=== PATIENT | male | born 1975 | race Caucasian/White ===

== ENCOUNTER 2016-11-07 11:03 | Observation (INO) ==
[2016-11-07] MEDS ORDERED: 0.9 % Sodium Chloride 1,000 ML IVC ONE (11:10)
[2016-11-07] MEDS ORDERED: *HR* LORazepam 2 MG/ML VIAL IVP ONE (11:10)
--- NOTE | 2016-11-07 11:12 | Emergency Department Note ---
Overdose - Differential Diagnosis Likely: intentional overdose - Medical Records Medical records reviewed: Yes I reviewed the patient's medical records. - Lab Data Lab results reviewed: Yes I reviewed the patient's lab results. Result diagrams: 11/07/16 11:25 11/07/16 11:25 Lab Results 11/07/16 11/07/16 11/07/16 Range/Units 11:25 11:25 11:25 WBC 9.5 (4.3-11.1) K/mcL RBC 5.03 (4.19-5.50) M/mcL Hgb 15.2 (12.9-16.9) g/dL Hct 43.0 (37.5-50.1) % MCV 85.5 (83.0-100.0) fL MCH 30.2 (28.0-33.3) pg MCHC 35.3 (31.6-35.5) g/dL RDW 13.2 (11.5-14.5) % Plt Count 285 (140-400) K/mcL MPV 9.3 L (9.4-12.4) fL Immature Gran % 0.3 (0-4) % Seg Neutrophils % 63.5 % Lymphocytes % 26.7 % Monocytes % 8.8 % Eosinophils % 0.2 % Basophils % 0.5 % Neutrophils # 6.0 (1.6-8.9) K/mcL Lymphocytes # 2.5 (0.6-4.6) K/mcL Monocytes # 0.8 (0.0-1.3) K/mcL Eosinophils # 0.0 (0.0-0.6) K/mcL Basophils # 0.1 (0.0-0.2) K/mcL Sodium 142 (136-145) mEq/L Potassium 4.1 (3.5-4.5) mEq/L Chloride 107 (98-109) mEq/L Carbon Dioxide 21 (19-29) mEq/L BUN 16 (8-26) mg/dL Creatinine 0.78 (0.72-1.25) mg/dL Est GFR ( Amer) > 60 (> 60) Est GFR (Non-Af Amer) > 60 (> 60) BUN/Creatinine Ratio 21 (6-26) Glucose 97 (70-99) mg/dL Calculated Osmolality 295 (280-300) Calcium 10.3 (8.6-10.8) mg/dL Total Bilirubin 1.2 (0.2-1.2) mg/dL Direct Bilirubin 0.5 (0.0-0.5) mg/dL Indirect Bilirubin 0.7 (0.0-1.2) mg/dL AST 156 H (5-34) Units/L ALT 258 H (0-55) Units/L Alkaline Phosphatase 94 (38-126) Units/L Creatine Kinase 2493 H (30-200) Units/L Troponin I (0-0.03) ng/mL Serum Total Protein 7.5 (6.0-8.3) g/dL Albumin 4.5 (3.5-5.0) g/dL Globulin 3.0 (2.4-3.5) g/dL Albumin/Globulin Ratio 1.5 (1.1-2.2) Salicylates < 5.0 L (15-30) mg/dL Acetaminophen < 1.0 L (10-30) mcg/mL Ethyl Alcohol < 10 (0-10) mg/dL 11/07/16 Range/Units 11:25 WBC (4.3-11.1) K/mcL RBC (4.19-5.50) M/mcL Hgb (12.9-16.9) g/dL Hct (37.5-50.1) % MCV (83.0-100.0) fL MCH (28.0-33.3) pg MCHC (31.6-35.5) g/dL RDW (11.5-14.5) % Plt Count (140-400) K/mcL MPV (9.4-12.4) fL Immature Gran % (0-4) % Seg Neutrophils % % Lymphocytes % % Monocytes % % Eosinophils % % Basophils % % Neutrophils # (1.6-8.9) K/mcL Lymphocytes # (0.6-4.6) K/mcL Monocytes # (0.0-1.3) K/mcL Eosinophils # (0.0-0.6) K/mcL Basophils # (0.0-0.2) K/mcL Sodium (136-145) mEq/L Potassium (3.5-4.5) mEq/L Chloride (98-109) mEq/L Carbon Dioxide (19-29) mEq/L BUN (8-26) mg/dL Creatinine (0.72-1.25) mg/dL Est GFR ( Amer) (> 60) Est GFR (Non-Af Amer) (> 60) BUN/Creatinine Ratio (6-26) Glucose (70-99) mg/dL Calculated Osmolality (280-300) Calcium (8.6-10.8) mg/dL Total Bilirubin (0.2-1.2) mg/dL Direct Bilirubin (0.0-0.5) mg/dL Indirect Bilirubin (0.0-1.2) mg/dL AST (5-34) Units/L ALT (0-55) Units/L Alkaline Phosphatase (38-126) Units/L Creatine Kinase (30-200) Units/L Troponin I 0.01 (0-0.03) ng/mL Serum Total Protein (6.0-8.3) g/dL Albumin (3.5-5.0) g/dL Globulin (2.4-3.5) g/dL Albumin/Globulin Ratio (1.1-2.2) Salicylates (15-30) mg/dL Acetaminophen (10-30) mcg/mL Ethyl Alcohol (0-10) mg/dL - Radiology Data Radiology results reviewed: Yes I reviewed the patient's radiology results. Single view chest x-ray is performed. This does not demonstrate evidence for infiltrate, effusion, pneumothorax, pneumomediastinum, foreign body or heart failure. The cardiac silhouette is normal. I do not see abnormality to the osseous structures of the chest. This is on my interpretation. - EKG Data EKG attestation: Yes I reviewed and interpreted this EKG. EKG shows normal: sinus rhythm, axis, intervals, QRS complexes, ST-T waves Rate: tachycardia (109) Interpretation: no acute changes Overdose HPI - General Stated Complaint: trouble breathing Time Seen by Provider: 11/07/16 11:10 Source: patient Mode of arrival: private vehicle Limitations: altered mental status Nursing Notes Reviewed: Yes Vital Signs Reviewed: Yes - History of Present Illness HPI Narrative: The patient articulates that he has a long history of drug abuse. Relates recently he has been doing "ice and methamphetamine". His last IV use of these substances was about 3 weeks ago "with a new needle". He states he has continued using drugs by nasal, smoking or oral route daily. He understood that the police were upstairs last night and he ingested 6 grams of "ice". He figured that they had turned his gas of and his water so that he could not flush or get rid of these in any other way other than to ingest the drug. He states that he thought he had subsequently only fallen asleep for about 20 minutes and was surprised to find it was late the next morning when his neighbor came to check on him. He has been somewhat hyperdynamic, hyperventilatory and agitated and has been brought in for evaluation. He denies any attempt to harm himself or other. He denies any other prescription or [id number] drug use. He denies alcohol. He states that once he gets started taking drugs that he just cannot stop. He states that he knows that the methamphetamine would cause him to have "all kinds of hallucinations". Patient denies headache, nausea, vomiting, chest pain or feeling of palpitations. He denies he has been having abdominal pain. He denies any type of extremity, neck or back pain. He is able to explain that he feels that he is still under the effect of the drugs that he took last night. Pt Subjective Complaint: intentional overdose Onset (ago): hour(s) (13) Timing confirmed by: other (Neighbor) Intent: other (To avoid the police) How Overdose Was Discovered: other (Family came to visit today) Associated symptoms: paranoia, hallucinations, shortness of breath Treatments Prior to Arrival: none - Related Data Home Medications Medication Instructions Recorded Confirmed No Known Home Drugs 11/07/16 11/07/16 Allergies Allergy/AdvReac Type Severity Reaction Status Date / Time Penicillins [PCN] Allergy Severe Difficulty Verified 11/07/16 11:11 Breathing Tomato Allergy Severe Difficulty Verified 11/07/16 11:11 Breathing All systems ED: reviewed and negative except as stated. Past Medical History - Past Medical History Attestation: Yes The following information was validated with the patient. Source: patient, old records reviewed, nursing notes reviewed Medical history: Reports: CHF, diabetes, hepatitis, hyperlipidemia, hypertension , kidney stones, liver disease, renal disease, thyroid disease, syncope, other ( Patient says his liver, kidney and heart problems were due to previous drug abuse.) Surgical history: Reports: no surgical history Psychiatric history: Reports: anxiety, bipolar, depression, PTSD, previous psychiatric hospitalization - Social History Smoking Status: Current every day smoker Smokeless Tobacco Status: No Alcohol use: Reports: none Drug use: Reports: methamphetamine Physical Exam - General Limitations: altered mental status (Agitated) General appearance: alert, anxious - Head Head exam: atraumatic, normocephalic, normal inspection - Eye Eye exam: Present: normal appearance, PERRL, EOMI - ENT ENT exam: normal exam, normal oropharynx, mucous membranes moist - Neck Neck exam: Present: normal inspection, full ROM, trachea midline - Chest Chest inspection: Present: normal inspection, symmetric chest wall rise - Respiratory Respiratory exam: Present: normal lung sounds bilaterally, other (Elevated respiratory rate). Absent: wheezes, prolonged expiratory phase - Cardiovascular Cardiovascular exam: Present: regular rate, normal rhythm, tachycardia, normal heart sounds - Abdominal Exam Abdominal exam: Present: soft, Non-Tender, normal bowel sounds. Absent: tenderness, distention, guarding, rebound, rigidity - Extremities Exam Extremities exam: Present: normal inspection, full ROM, normal capillary refill. Absent: tenderness, pedal edema - Expanded Lower Extremity Exam Neurovascular/Tendon exam: Present: normal capillary refill. Absent: motor deficit, sensory deficit, tendon deficit Gait: not tested/not observed (Patient is brought in wheelchair. He is able to stand and transfer to the examining bed.) - Back Exam Back exam: Present: normal inspection, full ROM. Absent: tenderness - Neurological Exam Neurological exam: Present: alert. Absent: motor sensory deficit - Psychiatric Psychiatric exam: Present: agitated, anxious - Skin Skin exam: Present: warm, dry, intact, normal color. Absent: cyanosis, diaphoresis, pallor Course Course Narrative: 1253: Patient has not been in to urinate at this time. He has now somnolent on the Ativan and I believe he will need hydration overnight and a recheck of his renal function and CK tomorrow prior to discharge. For this reason I have had the hospitalist, Dr. Cruz paged. 1310: Dr. Cruz is agreeable to having this patient observed in the hospital. His only concern is if this would be an attempt at self-harm and the patient has very specifically denied this. He will be observed, hydrated and repeat blood work is written for tomorrow morning. I have contacted to [facility] bed management and we are working on bed placement. Vital Signs Temperature 99.1 F 11/07/16 11:03 Pulse Rate 123 11/07/16 11:03 Respiratory Rate 28 11/07/16 11:03 Blood Pressure 142/80 11/07/16 11:03 O2 Sat by Pulse Oximetry 99 11/07/16 11:03 Temperature 99.1 F 11/07/16 11:03 Pulse Rate 123 11/07/16 11:03 Respiratory Rate 28 11/07/16 11:03 Blood Pressure 142/80 11/07/16 11:03 O2 Sat by Pulse Oximetry 98 11/07/16 12:10 Oxygen Delivery Oxygen Delivery Room Air Critical Care Time Critical Care Time: Yes Total Critical Care Time: 45 Attestation: As this patient did present with signs and symptoms of potential life- threatening illness requiring my urgent intervention, total critical care time in this patient's care has been 45 minutes, not withstanding separately reportable procedures. Disposition Clinical Impression: Methamphetamine abuse, Overdose of illicit drug Disposition: Admitted As Inpatient Referrals: Avelina Diaz CNP [Primary Care Provider] -
[2016-11-07 11:44] LABS: Basophils # 0.1 K/mcL (0.0-0.2); Basophils % 0.5 %; Eosinophils % 0.2 %; Hemoglobin 15.2 g/dL (12.9-16.9); Immature Granulocytes % 0.3 % (0-4); Lymphocytes # 2.5 K/mcL (0.6-4.6); Lymphocytes % 26.7 %; Mean Corpuscular HGB Conc 35.3 g/dL (31.6-35.5); Mean Corpuscular Hemoglobin 30.2 pg (28.0-33.3); Mean Corpuscular Volume 85.5 fL (83.0-100.0); Mean Platelet Volume 9.3 fL (9.4-12.4); Monocytes # 0.8 K/mcL (0.0-1.3); Monocytes % 8.8 %; Platelet Count 285 K/mcL (140-400); Red Blood Count 5.03 M/mcL (4.19-5.50); Red Cell Distribution Width 13.2 % (11.5-14.5); Segmented Neutrophils % 63.5 %
[2016-11-07 11:50] LABS: Alanine Aminotransferase 258 Units/L (0-55); Albumin 4.5 g/dL (3.5-5.0); Albumin/Globulin Ratio 1.5 (1.1-2.2); Alkaline Phosphatase 94 Units/L (38-126); Aspartate Amino Transferase 156 Units/L (5-34); BUN/Creatinine Ratio 21 (6-26); Bilirubin,Direct 0.5 mg/dL (0.0-0.5); Bilirubin,Indirect 0.7 mg/dL (0.0-1.2); Bilirubin,Total 1.2 mg/dL (0.2-1.2); Blood Urea Nitrogen 16 mg/dL (8-26); Calcium 10.3 mg/dL (8.6-10.8); Carbon Dioxide 21 mEq/L (19-29); Chloride 107 mEq/L (98-109); Ethanol < 10 mg/dL (0-10); Glucose 97 mg/dL (70-99); Osmolality,Calculated 295 (280-300); Potassium 4.1 mEq/L (3.5-4.5); Sodium 142 mEq/L (136-145); Total Protein 7.5 g/dL (6.0-8.3); eGFR For African Americans > 60 (> 60); eGFR For Non-African Americans > 60 (> 60)
[2016-11-07 12:38] LABS: Salicylate < 5.0 mg/dL (15-30)
[2016-11-07 12:39] LABS: Acetaminophen < 1.0 mcg/mL (10-30)
[2016-11-07] MEDS ORDERED: 0.9 % Sodium Chloride 1,000 ML IVC SCH (13:00)
[2016-11-07] MEDS ORDERED: Ondansetron 4 MG/2 ML VIAL IVP PRN (14:19)
[2016-11-07] MEDS ORDERED: Naloxone 0.4 MG/ML INJ IVP PRN (14:19)
[2016-11-07] MEDS ORDERED: MOM Conc 10 ML UD.LIQ PO PRN (14:19)
--- NOTE | 2016-11-07 14:31 | Internal Med History&Physical ---
Date of Encounter: 11/07/16 Time of Encounter: 14:28 Assessment and Plan (1) Methamphetamine abuse Current visit: Yes Status: Acute Patient in order to avoid confrontation with the police took 6 g of crystal meth. According to the patient (2) Overdose of illicit drug Current visit: Yes Status: Acute See above Internal Medicine - H&P: HPI Chief complaint: Patient purposely took 6 g crystal meth because the police were in his apar Admitted From: Emergency Dept Plans for Post Hospital Care: Home History of present illness: Mr. Montalvo is a 41 year old male Patient's vital signs are stable he was somewhat hyper agitated but was given some Ativan and was resting quietly EK was elevated and he was on the floor for unknown period time. So we will observe and repeat the lab in a.m. hydrate him and then discharge him Past Med Surg Social Fam HX - Past Medical History Medical history: CHF, diabetes, hepatitis, hyperlipidemia, hypertension, kidney stones, liver disease (History of hepatitis C.), renal disease, thyroid disease , syncope, other (Patient says his liver, kidney and heart problems were due to previous drug abuse.) Psychiatric history: anxiety, bipolar, depression, PTSD, previous psychiatric hospitalization - Past Surgical History Surgical History: no surgical history - Social History Smoking Status: Current every day smoker Smokeless Tobacco Status: No Alcohol use: none Drug use: methamphetamine Internal Medicine - H&P: Meds No Known Home Drugs 11/07/16 [History] Allergies Penicillins [PCN] Allergy (Severe, Verified 11/07/16 11:11) Difficulty Breathing Tomato Allergy (Severe, Verified 11/07/16 11:11) Difficulty Breathing All Systems PM: A 10-system review of systems was performed and is negative for pertinent findings except as documented above in the HPI. - Constitutional Vitals: Temp Pulse Resp BP Pulse Ox 98.1 F 93 18 130/77 100 11/07/16 13:51 11/07/16 13:51 11/07/16 13:51 11/07/16 13:51 11/07/16 13:51 - Head Head exam: Present: atraumatic, normal inspection, normocephalic - Respiratory Respiratory exam: Present: CTAB. Absent: accessory muscle use, rales, rhonchi, wheezes Additional comments: I want to emphasize even of the diagnosis was short of breath. His breathing and no time during my discussion with the emergency room physician or the patient any description of shortness of breath Internal Med - H&P Results - Labs CBC & Chem 7: 11/07/16 11:25 11/07/16 11:25
[2016-11-07] MEDS: 0.9 % Sodium Chloride 1,000 ML IVC SCH ×2 (15:00→22:00)
--- NOTE | 2016-11-07 16:16 | Electrocardiograph Report ---
[facility] Test Date: 2016-11-07 Pat Name: Nicho Montalvo Department: 2001 Room: 118 Gender: M Project Structural Engineer: Tlc : 1975 Requested By: Kilo Palmer Order Number: [id number] Reading MD: Artie Pedraza MD Measurements Intervals [place] Rate: 109 P: 70 TX: 126 QRS: 78 QRSD: 89 T: 66 QT: 320 QTc: 384 Interpretive Statements SINUS TACHYCARDIA INFERIOR MYOCARDIAL INFARCTION, PROBABLY OLD Electronically Signed On 11-07-16 16:15:02 EST by Artie Pedraza MD
[2016-11-07 23:38] LABS: Bilirubin,Urine Negative (Negative); Blood,Urine Large (Negative); Clarity,Urine Slightly Cloudy (Clear); Glucose,Urine (UA) Normal (Normal); Ketones,Urine Negative (Negative); Leukocyte Esterase,Urine Negative (Negative); Nitrite,Urine Negative (Negative); PH,Urine 6.5 pH Units (5.0-8.0); Protein,Urine Trace mg/dL (Neg-Trace); Specific Gravity,Urine 1.025 (1.010-1.025); Urobilinogen,Urine Normal (Normal)
[2016-11-07 23:44] LABS: Color,Urine Dark Yellow (Yellow)
[2016-11-07 23:47] LABS: Amphetamine Screen,Urine Positive ng/mL (Cutoff=1000); Barbiturate Screen,Urine Negative ng/mL (Cutoff=200); Benzodiazepines Screen,Urine Negative ng/mL (Cutoff=200); Cannabinoid Screen,Urine Negative ng/mL (Cutoff = 50); Cocaine Screen,Urine Negative ng/mL (Cutoff= 300); Opiate Screen,Urine Negative ng/mL (Cutoff=300); Phencyclidine Screen,Urine Negative ng/mL (Cutoff=25)
[2016-11-07 23:58] VITALS: BP 90/65
--- NOTE | 2016-11-08 11:58 | Discharge Summary ---
Date of Encounter: 11/08/16 Time of Encounter: 11:55 - Discharge Diagnosis (1) Methamphetamine abuse Priority: Primary Status: Acute (2) Overdose of illicit drug Priority: Primary Status: Acute - Discharge Medications Home Medications: No Known Home Drugs 11/07/16 [History] Allergies/Adverse Reactions: Allergies Penicillins [PCN] Allergy (Severe, Verified 11/07/16 11:11) Difficulty Breathing Tomato Allergy (Severe, Verified 11/07/16 11:11) Difficulty Breathing Procedures/tests Complete & Pending: Procedures Performed prior 72 hours Category Date Time Status EKG [ECG 12 lead ECG] [ECG] Routine Y 11/07/16 15:10 Ordered Date of admission: 11/07/16 13:54 Primary care physician: Avelina Diaz CNP Discharging clinician: Nicholas Cruz Anticipated date of discharge: 11/08/16 - Patient Status Disposition: Left Against Medical Advice - Discharge Instructions Forms: ED Satisfaction Letter Interval History: This 41-year-old male presents to the emergency room because his neighbor found him on the floor quite agitated. He apparently imbibed 6 g of crystal meth. He was admitted to the floor for observation plus fluids and following CPK. Lab looked pretty good the CPK was half what it was. He walked out of the hospital around 1 AM. So patient left AMA Hospital course: Mr. Montalvo is a 41 year old male - Time Spent with Patient Total time spent providing and/or coordinating discharge services: - Constitutional Vitals: Temp Pulse Resp BP Pulse Ox 97.9 F 91 22 90/65 98 11/07/16 23:56 11/07/16 23:56 11/07/16 23:56 11/07/16 23:56 11/07/16 23:56 - VTE Documentation of Mechanical Device: Graduated compression elastic hosiery
== END 2016-11-08 00:45 | disposition left against medical advice (07) ==
LOC: INPGRE 11:03 → EMEROOGRE 11:03 → INPGRE 14:10
PROVIDERS: ADMIT Internal Medicine; ATTEND Internal Medicine